=== PATIENT | male | born 1995 | race Caucasian/White ===

== ENCOUNTER 2017-03-11 17:53 | Inpatient (IN) ==
[2017-03-11 18:41] LABS: Bilirubin,Urine Negative (Negative); Blood,Urine Negative (Negative); Clarity,Urine Clear (Clear); Color,Urine Yellow (Yellow); Glucose,Urine (UA) Normal (Normal); Ketones,Urine Negative (Negative); Leukocyte Esterase,Urine Negative (Negative); Nitrite,Urine Negative (Negative); Protein,Urine Negative (Neg-Trace); Specific Gravity,Urine 1.017 (1.010-1.025); Urobilinogen,Urine Normal (Normal)
[2017-03-11 18:43] LABS: Amphetamine Screen,Urine Negative ng/mL (Cutoff=1000); Barbiturate Screen,Urine Negative ng/mL (Cutoff=200); Benzodiazepines Screen,Urine Negative ng/mL (Cutoff=200); Cannabinoid Screen,Urine Positive ng/mL (Cutoff = 50); Cocaine Screen,Urine Negative ng/mL (Cutoff= 300); Opiate Screen,Urine Negative ng/mL (Cutoff=300); Phencyclidine Screen,Urine Negative ng/mL (Cutoff=25)
[2017-03-11 18:46] LABS: Basophils % 0.3 %; Eosinophils # 0.1 K/mcL (0.0-0.6); Eosinophils % 0.6 %; Hematocrit 48.8 % (37.5-50.1); Hemoglobin 17.1 g/dL (12.9-16.9); Immature Granulocytes % 0.4 % (0-4); Lymphocytes # 1.1 K/mcL (0.6-4.6); Lymphocytes % 10.8 %; Mean Corpuscular Hemoglobin 28.7 pg (28.0-33.3); Monocytes # 0.6 K/mcL (0.0-1.3); Monocytes % 6.1 %; Neutrophils # 8.6 K/mcL (1.6-8.9); Platelet Count 207 K/mcL (140-400); Red Blood Count 5.95 M/mcL (4.19-5.50); Segmented Neutrophils % 81.8 %
[2017-03-11 18:57] LABS: BUN/Creatinine Ratio 13 (6-26); Blood Urea Nitrogen 12 mg/dL (8-26); Calcium 9.6 mg/dL (8.6-10.8); Carbon Dioxide 25 mEq/L (19-29); Chloride 105 mEq/L (98-109); Glucose 93 mg/dL (70-99); Osmolality,Calculated 289 (280-300); Potassium 3.7 mEq/L (3.5-4.5); Sodium 140 mEq/L (136-145); eGFR For African Americans > 60 (> 60); eGFR For Non-African Americans > 60 (> 60)
[2017-03-11 18:58] LABS: Acetaminophen < 1.0 mcg/mL (10-30); Ethanol < 10 mg/dL (0-10); Salicylate < 5.0 mg/dL (15-30)
--- NOTE | 2017-03-11 19:16 | Emergency Department Note ---
Disposition Clinical Impression: Suicidal ideations, History of schizophrenia Disposition: Admitted As Inpatient Condition: Fair Psych HPI - General Chief Complaint: ED Psychiatric Symptoms Stated Complaint: SI Time Seen by Provider: 03/11/17 18:05 Source: patient Mode of arrival: ambulatory Limitations: no limitations Nursing Notes Reviewed: Yes Vital Signs Reviewed: Yes - History of Present Illness HPI Narrative: 22-year-old male history of ADHD, schizophrenia, depression presents for evaluation following a suicide attempt. Patient states that he heard voices in his head and had a knife to his throat with threatening to kill himself because his mother committed suicide yesterday. The patient denies history of suicide attempt in the past. Reports a etoh earlier today but denies any other drugs. Patient reports that he has not been taking any medications. Reports history of violent outbreaks with his schizophrenia episodes. Patient currently does not want to harm her kill others. Denies any chest pains worse of breath fevers. No abdominal pain nausea vomiting. Pt complaint: suicidal ideation, feels depressed - Related Data Home Medications Medication Instructions Recorded Confirmed No Known Home Drugs 03/11/17 03/11/17 Allergies Allergy/AdvReac Type Severity Reaction Status Date / Time No Known Allergies Allergy Verified 03/11/17 20:20 All systems ED: reviewed and negative except as stated. Constitutional: Reports: as per HPI. Denies: fever Eyes: Reports: as per HPI ENT ED: Reports: as per HPI Cardiovascular: Reports: as per HPI. Denies: chest pain Respiratory: Reports: as per HPI. Denies: dyspnea Gastrointestinal: Reports: as per HPI. Denies: abdominal pain Genitourinary: Reports: as per HPI Musculoskeletal: Reports: as per HPI Integumentary: Reports: as per HPI Neurological: Reports: as per HPI Psychiatric: Reports: as per HPI Endocrine: Reports: as per HPI Hematological/Lymphatic: Reports: as per HPI Allergic/Immunologic: Reports: as per HPI Past Medical History - Past Medical History Medical history: Reports: other Psychiatric history: Reports: ADHD, schizophrenia - Social History Smoking Status: Current every day smoker Smokeless Tobacco Status: No Alcohol use: Reports: occasionally Drug use: Reports: none Physical Exam - General Limitations: no limitations General appearance: alert, in no apparent distress - Head Head exam: atraumatic, normal inspection - Eye Eye exam: Present: normal appearance, EOMI - ENT ENT exam: normal exam, mucous membranes moist - Neck Neck exam: Present: normal inspection, trachea midline, other (No signs of external trauma to the neck) - Chest Chest inspection: Present: normal inspection. Absent: symmetric chest wall rise - Respiratory Respiratory exam: Absent: respiratory distress, accessory muscle use - Cardiovascular Cardiovascular exam: Present: regular rate, normal rhythm - Abdominal Exam Abdominal exam: Present: soft, Non-Tender - Extremities Exam Extremities exam: Present: normal inspection. Absent: pedal edema - Back Exam Back exam: Present: normal inspection. Absent: CVA tenderness (R), CVA tenderness (L) - Neurological Exam Neurological exam: Present: alert, oriented X3 - Skin Skin exam: Present: warm, dry, intact, normal color Course Course Narrative: Patient seen and examined. Patient's in no acute distress. Patient's resting comfortably and communicating without difficulty and conversing appropriately. Patient appears well. Patient will be evaluated by one day following medical clearance. Vital Signs Temperature 98.3 F 03/11/17 18:00 Pulse Rate 96 03/11/17 18:00 Respiratory Rate 16 03/11/17 18:00 Blood Pressure 144/86 03/11/17 18:00 O2 Sat by Pulse Oximetry 99 03/11/17 18:00 Temperature 0 F L 03/11/17 20:25 Pulse Rate 96 03/11/17 18:18 Respiratory Rate 0 03/11/17 20:25 Blood Pressure 00/00 03/11/17 20:25 O2 Sat by Pulse Oximetry 99 03/11/17 18:18 Oxygen Delivery Oxygen Delivery Room Air Psych - MDM Narrative Medical decision making narrative: Patient had medical clearance and then evaluated by psychiatric counselors. Patient was observed in the emergency department was no concerning signs of outbursts or aggression. The patient cooperated well while in the emergency department. Patient was evaluated and admitted for further psychiatric evaluation as an inpatient. - Lab Data Result diagrams: 03/11/17 18:23 03/11/17 18:23 Lab Results 03/11/17 03/11/17 03/11/17 Range/Units 18:23 18:23 18:30 WBC 10.5 (4.3-11.1) K/mcL RBC 5.95 H (4.19-5.50) M/mcL Hgb 17.1 H (12.9-16.9) g/dL Hct 48.8 (37.5-50.1) % MCV 82.0 L (83.0-100.0) fL MCH 28.7 (28.0-33.3) pg MCHC 35.0 (31.6-35.5) g/dL RDW 12.0 (11.5-14.5) % Plt Count 207 (140-400) K/mcL MPV 11.0 (9.4-12.4) fL Immature Gran % 0.4 (0-4) % Seg Neutrophils % 81.8 % Lymphocytes % 10.8 % Monocytes % 6.1 % Eosinophils % 0.6 % Basophils % 0.3 % Neutrophils # 8.6 (1.6-8.9) K/mcL Lymphocytes # 1.1 (0.6-4.6) K/mcL Monocytes # 0.6 (0.0-1.3) K/mcL Eosinophils # 0.1 (0.0-0.6) K/mcL Basophils # 0.0 (0.0-0.2) K/mcL Sodium 140 (136-145) mEq/L Potassium 3.7 (3.5-4.5) mEq/L Chloride 105 (98-109) mEq/L Carbon Dioxide 25 (19-29) mEq/L BUN 12 (8-26) mg/dL Creatinine 0.96 (0.72-1.25) mg/dL Est GFR ( Amer) > 60 (> 60) Est GFR (Non-Af Amer) > 60 (> 60) BUN/Creatinine Ratio 13 (6-26) Glucose 93 (70-99) mg/dL Calculated Osmolality 289 (280-300) Calcium 9.6 (8.6-10.8) mg/dL TSH 0.620 (0.350-4.840) mcIU/mL Urine Color Yellow (Yellow) Urine Clarity Clear (Clear) Urine pH 8.0 (5.0-8.0) pH Units Ur Specific [place] 1.017 (1.010-1.025) Urine Protein Negative (Neg-Trace) mg/dL Urine Glucose (UA) Normal (Normal) mg/dL Urine Ketones Negative (Negative) mg/dL Urine Blood Negative (Negative) Urine Nitrite Negative (Negative) Urine Bilirubin Negative (Negative) Urine Urobilinogen Normal (Normal) mg/dL Ur Leukocyte Esterase Negative (Negative) Salicylates < 5.0 L (15-30) mg/dL Urine Opiates Screen (Oqcggk=624) ng/mL Acetaminophen < 1.0 L (10-30) mcg/mL Ur Barbiturates Screen (Qrwixr=496) ng/mL Ur Phencyclidine Scrn (Cutoff=25) ng/mL Ur Amphetamines Screen (Eeaebg=7194) ng/mL U Benzodiazepines Scrn (Smsliz=966) ng/mL Urine Cocaine Screen (Cutoff= 300) ng/mL U Marijuana (THC) Screen (Cutoff = 50) ng/mL Ethyl Alcohol < 10 (0-10) mg/dL 03/11/17 Range/Units 18:30 WBC (4.3-11.1) K/mcL RBC (4.19-5.50) M/mcL Hgb (12.9-16.9) g/dL Hct (37.5-50.1) % MCV (83.0-100.0) fL MCH (28.0-33.3) pg MCHC (31.6-35.5) g/dL RDW (11.5-14.5) % Plt Count (140-400) K/mcL MPV (9.4-12.4) fL Immature Gran % (0-4) % Seg Neutrophils % % Lymphocytes % % Monocytes % % Eosinophils % % Basophils % % Neutrophils # (1.6-8.9) K/mcL Lymphocytes # (0.6-4.6) K/mcL Monocytes # (0.0-1.3) K/mcL Eosinophils # (0.0-0.6) K/mcL Basophils # (0.0-0.2) K/mcL Sodium (136-145) mEq/L Potassium (3.5-4.5) mEq/L Chloride (98-109) mEq/L Carbon Dioxide (19-29) mEq/L BUN (8-26) mg/dL Creatinine (0.72-1.25) mg/dL Est GFR ( Amer) (> 60) Est GFR (Non-Af Amer) (> 60) BUN/Creatinine Ratio (6-26) Glucose (70-99) mg/dL Calculated Osmolality (280-300) Calcium (8.6-10.8) mg/dL TSH (0.350-4.840) mcIU/mL Urine Color (Yellow) Urine Clarity (Clear) Urine pH (5.0-8.0) pH Units Ur Specific [place] (1.010-1.025) Urine Protein (Neg-Trace) mg/dL Urine Glucose (UA) (Normal) mg/dL Urine Ketones (Negative) mg/dL Urine Blood (Negative) Urine Nitrite (Negative) Urine Bilirubin (Negative) Urine Urobilinogen (Normal) mg/dL Ur Leukocyte Esterase (Negative) Salicylates (15-30) mg/dL Urine Opiates Screen Negative (Imlukx=250) ng/mL Acetaminophen (10-30) mcg/mL Ur Barbiturates Screen Negative (Mbxubw=540) ng/mL Ur Phencyclidine Scrn Negative (Cutoff=25) ng/mL Ur Amphetamines Screen Negative (Gxyswq=0055) ng/mL U Benzodiazepines Scrn Negative (Pmujej=303) ng/mL Urine Cocaine Screen Negative (Cutoff= 300) ng/mL U Marijuana (THC) Screen Positive H (Cutoff = 50) ng/mL Ethyl Alcohol (0-10) mg/dL Psychiatric Medical Clearance - Medical Clearance Checklist Does the patient have a NEW psychiatric condition?: No Any abnormalities indicating possible medical illness?: No Any history of medical issues?: No Medical History: No Social History Section defined Any abnormal vital signs prior to transfer?: No Current Vitals: Last Vital Signs Temp 0 F L 03/11/17 20:25 Pulse 96 03/11/17 18:18 Resp 0 03/11/17 20:25 BP 00/00 03/11/17 20:25 Pulse Ox 99 03/11/17 18:18 Is the patient intoxicated or cognitively impaired?: No Psychiatric Lab Panel: Drug Levels and Toxicity 03/11/17 03/11/17 18:23 18:30 Urine Opiates Screen Negative Acetaminophen < 1.0 L Ur Barbiturates Screen Negative Ur Phencyclidine Scrn Negative Ur Amphetamines Screen Negative U Benzodiazepines Scrn Negative Urine Cocaine Screen Negative U Marijuana (THC) Screen Positive H Ethyl Alcohol < 10 Any abnormalities on the physical exam?: No Any abnormal labs?: No Abnormal Labs: Abnormal lab results RBC 5.95 M/mcL (4.19-5.50) H 03/11/17 18:23 Hgb 17.1 g/dL (12.9-16.9) H 03/11/17 18:23 MCV 82.0 fL (83.0-100.0) L 03/11/17 18:23 Salicylates < 5.0 mg/dL (15-30) L 03/11/17 18:23 Acetaminophen < 1.0 mcg/mL (10-30) L 03/11/17 18:23 U Marijuana (THC) Screen Positive ng/mL (Cutoff = 50) H 03/11/17 18:30 Does the patient require durable medical equiptment?: No Is the patient ambulatory?: No Is the patient a fall risk?: No Has the patient been medically cleared?: Yes Any acute medical condition require Tx prior to transfer?: No Statement of Medical Clearance: I have evaluated the patient, reviewed diagnostic information, and certify that the patient's medical condition is sufficiently stable that transfer to the psychiatric unit does not pose a significant risk of deterioration.
--- NOTE | 2017-03-11 19:18 | Emergency Department Note ---
START Narrative - START START: I examined this patient and my medical decision-making was reviewed with the REFERRAL AGENT/PA/Advanced Practice Nurse/Resident Physician. I agree with the documented findings, disposition and treatment plan as described except to the extent set forth below. ED attending note: Patient seen with emergency medicine resident Dr Pineda. We independently evaluated the patient. We independently had [id number] contact with the patient. Please see a copy of his note for details of the history and physical, evaluation, management and disposition of this emergency Department patient. Briefly: A 22-year-old male history of depression ADHD and schizophrenia. Hearing voices in his head held a knife to his neck to attempt suicide but with withheld from performing that act. Just found that his mother committed suicide yesterday. Patient's physical examination is otherwise benign. He has been medically cleared. Mental health services has been consult and will eval pt in the emergency department. Disposition pending
[2017-03-11] MEDS ORDERED: MOM Conc 10 ML UD.LIQ PO PRN (21:22)
[2017-03-11] MEDS ORDERED: *HR* LORazepam 1 MG TABLET PO PRN (21:22)
[2017-03-11] MEDS ORDERED: *HR* LORazepam 2 MG/ML VIAL IM PRN (21:22)
[2017-03-11] MEDS ORDERED: Mag Hydrox/Al Hydrox/Simeth 30 ML UDC PO PRN (21:22)
[2017-03-11] MEDS ORDERED: Haloperidol Lactate 5 MG/ML VIAL IM PRN (21:22)
[2017-03-11] MEDS ORDERED: Acetaminophen 325 MG TABLET PO PRN (21:22)
[2017-03-11] MEDS ORDERED: hydrOXYzine pamoate 25 MG CAPSULE PO PRN (21:22)
[2017-03-11] MEDS: traZODone 50 MG TABLET PO PRN (23:29)
--- NOTE | 2017-03-12 10:57 | Psychiatry History & Physical ---
Date of Encounter: 03/12/17 Time of Encounter: 10:52 History of Present Illness Patient Stated Chief Complaint: Suicidal ideation Medicare Admission Attestation: For traditional Medicare patients the provided hospital inpatient services are reasonable and necessary and in the case of services not specified as inpatient -only under 42 CFR 419.22 (n), that they are appropriately provided as inpatient services in accordance 42 CFR 412.3. For Critical Access Hospital the patient may reasonably be expected to be discharged or transferred to a hospital within 96 hours after admission to the Critical Access Hospital. Admitted From: Emergency Dept History of Present Illness: Mr. Khanna is a 22 year old male admitted from the emergency room for evaluation suicidal ideation. Patient states he was stressed out when he found that his mother from an overdose in addition his dog last week. Patient was hearing voices commanding him to kill himself and he had a knife and was thinking about stabbing himself in neck to kill himself and then his girlfriend' s father talked to him and brought him in the hospital to be evaluated. Patient stated that he had history of ADHD as child and also history schizophrenia and has not been treated with medication or see a doctor since age 12. 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 Patient admitted to occasionally smoking cigarettes, consume some caffeine from soda and coffee recently his alcohol consumption increased ,also he smoked marijuana from time to time. His tox screen in the emergency room was positive for THC. He denies any previous suicide attempts or hospitalization. Past Med Surg Social Fam HX - Past Medical History Medical history: other - Past Psychiatric History Psychiatric history: Reports: ADHD, schizophrenia Past psychiatric history details: No treatments since age 12 Family psychiatric history: Unknown Family History of Suicide: Completed Family Suicide History Details: His mother from an overdose on opiates prior to admission - Social History Smoking Status: Current every day smoker Smokeless Tobacco Status: No Alcohol use: occasionally Drug use: none - Family History Mother History Unknown: Yes Father History Unknown: Yes Medications & Allergies No Known Home Drugs 03/11/17 [History] Allergies No Known Allergies Allergy (Verified 03/11/17 20:20) Review of Systems Psychiatric: Reports: depression, suicidal ideation, auditory hallucinations, hopelessness, irritability Mental Status Exam Patient orientation: Yes Person, Yes Time, Yes Place Level of alertness: Alert Patient appearance: Appropriate, Well Groomed Behavior: calm, cooperative, anxious Psychomotor activity: Normal Eye contact: Maintains Eye Contact Mood description: Depressed, Anxious, Irritable Affect description: congruent with mood, full range, constricted, dysphoric Speech pattern: Normal rate, Normal rhythm, Normal tone Speech volume: Normal Thought process: Linear, Goal Oriented Thought content: Yes Suicidal ideation, No Homicidal ideation, No Overt delusions Perceptual disturbances: Yes Auditory hallucinations, No Visual hallucinations Attention span: Capable of Focused Attention Memory description: Grossly Intact Patient reliability: Reliable Historian Intelligence estimate: Average Judgment: Limited Insight: Partial Results - Vital Signs Vital signs: Temp Pulse Resp BP Pulse Ox 97.8 F 76 18 128/89 99 03/12/17 09:00 03/12/17 09:00 03/12/17 09:00 03/12/17 09:00 03/11/17 18:18 - Labs Labs: Laboratory Last Values WBC 10.5 K/mcL (4.3-11.1) 03/11/17 18:23 RBC 5.95 M/mcL (4.19-5.50) H 03/11/17 18:23 Hgb 17.1 g/dL (12.9-16.9) H 03/11/17 18:23 Hct 48.8 % (37.5-50.1) 03/11/17 18:23 MCV 82.0 fL (83.0-100.0) L 03/11/17 18:23 MCH 28.7 pg (28.0-33.3) 03/11/17 18:23 MCHC 35.0 g/dL (31.6-35.5) 03/11/17 18:23 RDW 12.0 % (11.5-14.5) 03/11/17 18:23 Plt Count 207 K/mcL (140-400) 03/11/17 18:23 MPV 11.0 fL (9.4-12.4) 03/11/17 18:23 Immature Gran % 0.4 % (0-4) 03/11/17 18:23 Seg Neutrophils % 81.8 % 03/11/17 18:23 Lymphocytes % 10.8 % 03/11/17 18:23 Monocytes % 6.1 % 03/11/17 18:23 Eosinophils % 0.6 % 03/11/17 18:23 Basophils % 0.3 % 03/11/17 18:23 Neutrophils # 8.6 K/mcL (1.6-8.9) 03/11/17 18:23 Lymphocytes # 1.1 K/mcL (0.6-4.6) 03/11/17 18:23 Monocytes # 0.6 K/mcL (0.0-1.3) 03/11/17 18:23 Eosinophils # 0.1 K/mcL (0.0-0.6) 03/11/17 18:23 Basophils # 0.0 K/mcL (0.0-0.2) 03/11/17 18:23 Sodium 140 mEq/L (136-145) 03/11/17 18: Potassium 3.7 mEq/L (3.5-4.5) 03/11/17 18: Chloride 105 mEq/L (98-109) 03/11/17 18: Carbon Dioxide 25 mEq/L (19-29) 03/11/17 18:23 BUN 12 mg/dL (8-26) 03/11/17 18: Creatinine 0.96 mg/dL (0.72-1.25) 03/11/17 18:23 Est GFR ( Amer) > 60 (> 60) 03/11/17 18:23 Est GFR (Non-Af Amer) > 60 (> 60) 03/11/17 18:23 BUN/Creatinine Ratio 13 (6-26) 03/11/17 18: Glucose 93 mg/dL (70-99) 03/11/17 18:23 Calculated Osmolality 289 (280-300) 03/11/17 18:23 Calcium 9.6 mg/dL (8.6-10.8) 03/11/17 18: TSH 0.620 mcIU/mL (0.350-4.840) 03/11/17 18:23 Urine Color Yellow (Yellow) 03/11/17 18:30 Urine Clarity Clear (Clear) 03/11/17 18:30 Urine pH 8.0 pH Units (5.0-8.0) 03/11/17 18:30 Ur Specific [place] 1.017 (1.010-1.025) 03/11/17 18:30 Urine Protein Negative mg/dL (Neg-Trace) 03/11/17 18:30 Urine Glucose (UA) Normal mg/dL (Normal) 03/11/17 18:30 Urine Ketones Negative mg/dL (Negative) 03/11/17 18:30 Urine Blood Negative (Negative) 03/11/17 18:30 Urine Nitrite Negative (Negative) 03/11/17 18:30 Urine Bilirubin Negative (Negative) 03/11/17 18:30 Urine Urobilinogen Normal mg/dL (Normal) 03/11/17 18:30 Ur Leukocyte Esterase Negative (Negative) 03/11/17 18:30 Salicylates < 5.0 mg/dL (15-30) L 03/11/17 18:23 Urine Opiates Screen Negative ng/mL (Stlwqr=274) 03/11/17 18:30 Acetaminophen < 1.0 mcg/mL (10-30) L 03/11/17 18:23 Ur Barbiturates Screen Negative ng/mL (Lkyeuc=494) 03/11/17 18:30 Ur Phencyclidine Scrn Negative ng/mL (Cutoff=25) 03/11/17 18:30 Ur Amphetamines Screen Negative ng/mL (Ztrwov=0098) 03/11/17 18:30 U Benzodiazepines Scrn Negative ng/mL (Iaephg=138) 03/11/17 18:30 Urine Cocaine Screen Negative ng/mL (Cutoff= 300) 03/11/17 18:30 U Marijuana (THC) Screen Positive ng/mL (Cutoff = 50) H 03/11/17 18:30 Ethyl Alcohol < 10 mg/dL (0-10) 03/11/17 18:23 Assessment and Plan (1) Suicidal ideations Current visit: Yes Status: Acute Plan: Admit inpatient for safety and stabilization, Close observation, Suicide Precautions per unit protocol, Encourage participation in unit milieu, Group Therapy, Monitor sleep, Monitor appetite Risks, benefits, side effects, alternatives discussed w/pt: Yes Patient agreeable to treatment: Yes Estimated Length of Stay (Days): 5 (2) Unspecified psychosis Current visit: Yes Status: Acute Plan: Admit inpatient for safety and stabilization, Close observation, Suicide Precautions per unit protocol, Encourage participation in unit milieu, Group Therapy, Monitor sleep, Monitor appetite Additional Plan: Will start patient on Abilify 5 mg at bedtime. Benefits and side effects were explained patient is agreeable to start and will monitor. Risks, benefits, side effects, alternatives discussed w/pt: Yes Patient agreeable to treatment: Yes Estimated Length of Stay (Days): 5 Qualifiers: Psychosis type: unspecified psychosis type Qualified Code(s): F29 - Unspecified psychosis not due to a substance or known physiological condition
[2017-03-12] MEDS: ARIPiprazole 5 MG TABLET PO SCH (21:46)
[2017-03-12] MEDS: traZODone 50 MG TABLET PO PRN (21:46)
--- NOTE | 2017-03-13 12:52 | Psychiatry Progress Note ---
Date of Encounter: 03/13/17 Time of Encounter: 12:50 Subjective Interval history: Patient is seen for follow-up. Staff report he is cooperative and pleasant and compliant with medication and attending groups and activities. He tells me that he is tolerating the medication without any side effects or problems his sleep was very good last night he denied any suicidal or homicidal ideation and he is looking forward to seeing his girlfriend later this week. He was educated about medication and medication compliance. He denies any auditory hallucinations. Review of Systems Psychiatric: Reports: depression, suicidal ideation, auditory hallucinations, hopelessness, irritability Objective: Exam Patient orientation: Yes Person, Yes Time, Yes Place Level of alertness: Alert Patient appearance: Appropriate, Well Groomed Behavior: calm, cooperative, anxious Psychomotor activity: Normal Eye contact: Maintains Eye Contact Mood description: Anxious Affect description: congruent with mood, anxious Speech pattern: Normal rate, Normal rhythm, Normal tone Speech volume: Normal Thought process: Linear, Goal Oriented Thought content: No Suicidal ideation, No Homicidal ideation, No Overt delusions Perceptual disturbances: No Auditory hallucinations, No Visual hallucinations Judgment: Fair Insight: Partial Results - Vital Signs Vital Signs: Temp Pulse Resp BP Pulse Ox 98.6 F 83 18 150/93 99 03/12/17 21:00 03/12/17 21:00 03/12/17 21:00 03/12/17 21:00 03/11/17 18:18 Assessment and Plan (1) Suicidal ideations Current visit: Yes Status: Acute Plan: Continue hospitalization, Close observation, Suicide Precautions per unit protocol, Encourage participation in unit milieu, Group Therapy, Monitor sleep, Monitor appetite Risks, benefits, side effects, alternatives discussed w/pt: Yes Patient agreeable to treatment: Yes (2) Unspecified psychosis Current visit: Yes Status: Acute Plan: Continue hospitalization, Close observation, Suicide Precautions per unit protocol, Encourage participation in unit milieu, Group Therapy, Monitor sleep, Monitor appetite Risks, benefits, side effects, alternatives discussed w/pt: Yes Patient agreeable to treatment: Yes Consult Discharge Plan - Plan Referrals: [facility] [place] [facility] [Outside] [facility] [Outside]
[2017-03-13] MEDS: traZODone 50 MG TABLET PO PRN (21:53)
[2017-03-13] MEDS: ARIPiprazole 5 MG TABLET PO SCH (21:53)
--- NOTE | 2017-03-14 14:51 | Psychiatry Progress Note ---
Date of Encounter: 03/14/17 Time of Encounter: 14:48 Subjective Interval history: Patient is seen for follow-up. He reports feeling great, denies any problem with sleep or anxiety. He participated in groups and activities and well motivated. He denies any suicidal or homicidal ideation. He is anxious to back to work and loves his job. I discussed with him his past history and he tell me that the diagnosis of schizophrenia and was not officially made by but he experienced auditory hallucination when he was younger. Review of Systems Psychiatric: Reports: depression, suicidal ideation, auditory hallucinations, hopelessness, irritability Objective: Exam Patient orientation: Yes Person, Yes Time, Yes Place Level of alertness: Alert Patient appearance: Appropriate, Well Groomed Behavior: calm, cooperative Psychomotor activity: Normal Eye contact: Maintains Eye Contact Mood description: Euthymic/stable Affect description: congruent with mood, full range Speech pattern: Normal rate, Normal rhythm, Normal tone Speech volume: Normal Thought process: Linear, Goal Oriented Thought content: No Suicidal ideation, No Homicidal ideation, No Overt delusions Perceptual disturbances: No Auditory hallucinations, No Visual hallucinations Judgment: Fair Insight: Partial Results - Vital Signs Vital Signs: Temp Pulse Resp BP Pulse Ox 98.1 F 109 16 120/80 99 03/14/17 09:00 03/14/17 09:00 03/14/17 09:00 03/14/17 09:00 03/11/17 18:18 Assessment and Plan (1) Suicidal ideations Current visit: Yes Status: Acute Plan: Continue hospitalization, Close observation, Suicide Precautions per unit protocol, Encourage participation in unit milieu, Group Therapy, Monitor sleep, Monitor appetite Risks, benefits, side effects, alternatives discussed w/pt: Yes Patient agreeable to treatment: Yes (2) Unspecified psychosis Current visit: Yes Status: Acute Plan: Continue hospitalization, Close observation, Suicide Precautions per unit protocol, Encourage participation in unit milieu, Group Therapy, Monitor sleep, Monitor appetite Risks, benefits, side effects, alternatives discussed w/pt: Yes Patient agreeable to treatment: Yes Qualifiers: Psychosis type: unspecified psychosis type Qualified Code(s): F29 - Unspecified psychosis not due to a substance or known physiological condition Consult Discharge Plan - Plan Referrals: [facility] [place] [facility] [Outside] [facility] [Outside] - 03/18/17 3:00 pm (The above appointment is with [facility] for alcohol counseling.)
[2017-03-14] MEDS: ARIPiprazole 5 MG TABLET PO SCH (20:36)
[2017-03-15 09:13] VITALS: BP 133/79
--- NOTE | 2017-03-15 12:08 | Discharge Summary ---
Date of Encounter: 03/15/17 Time of Encounter: 12:05 Diagnosis - Discharge Diagnosis (1) Suicidal ideations Status: Acute (2) Unspecified psychosis Status: Acute Qualifiers: Psychosis type: unspecified psychosis type Qualified Code(s): F29 - Unspecified psychosis not due to a substance or known physiological condition Medications - Discharge Medications Prescriptions: Aripiprazole [Abilify] 5 mg PO HS #30 tablet Aripiprazole [Abilify] 5 mg PO HS #30 tablet 03/15/17 [Rx] Allergies No Known Allergies Allergy (Verified 03/11/17 20:20) Provider Date of admission: 03/12/17 11:40 Primary care physician: PCP NO Discharging clinician: Rajesh Méndez Assessment and Plan - Patient/Caregiver Discharge Instructions Activity: resume usual activities as tolerated Diet: regular diet - Follow up Plan Follow up with: [facility] [Outside] - 03/28/17 1:00 pm (The above appointment is with Dr. Monge, psychiatrist. Your community case manager can provide transportation to this appointment.) [facility] [employer] [place] [facility] [Outside] (Your community case manager/counselor, David Sheth, will call you directly to set up your first appointment.) [facility] [Outside] - 03/18/17 3:00 pm (The above appointment is with [facility] for alcohol counseling.) Functional capacity at discharge: independent ambulation Overall status at discharge: Stable Disposition: Home, Self-Care Hospital Course Hospital course: Mr. Khanna is a 22 year old male admitted from the emergency room for evaluation treatment suicidal and homicidal ideation. For details of admission please see H&P On the unit patient was evaluated and started on medication Abilify 5 mg daily daily. Patient tolerated the medication and he was reporting improved sleep and energy he attended and enjoyed group activities. He was cooperative pleasant and denying any suicidal or homicidal ideation. He was grateful for the opportunity to be evaluated and treated and he was looking forward to discharge and going back to work. Prior to discharge patient was medically stable, non-suicidal or homicidal, denied any auditory hallucinations and was future oriented. His discharge plans were completed by the criminal justice social worker to include therapy and medication management. - Time Spent with Patient Total time spent providing and/or coordinating discharge services: Less than 30 minutes Quality - Multiple Antipsychotics Patient discharged on 2 or more antipsychotic medications: No Procedures - Procedures Procedures: Medication Management, Crisis Stabilization, Supportive Therapy, Group Therapy, Psychoeducational Therapy Mental Status Exam - Mental Status Exam Patient orientation: Yes Person, Yes Time, Yes Place Level of alertness: Alert Patient appearance: Appropriate, Well Groomed Behavior: calm, cooperative Psychomotor activity: Normal Eye contact: Maintains Eye Contact Mood description: Euthymic/stable Affect description: congruent with mood, full range Speech pattern: Normal rate, Normal rhythm, Normal tone Speech Volume: Normal Thought process: Linear, Goal Oriented Thought Content: No Suicidal ideation, No Homicidal ideation, No Overt delusions Perceptual Disturbances: No Auditory hallucinations, No Visual hallucinations Judgment: Limited Insight: Partial
== END 2017-03-15 14:30 | disposition home or self-care (01) | DRG 751 ==
LOC: EMEROO 17:53 → 1ANU 17:53 → EMEROO 20:25 → 1ANU 20:25
PROVIDERS: ADMIT Psychiatry & Neurology Psychiatry; ATTEND Psychiatry & Neurology Psychiatry